=== PATIENT | male | born 1995 | race Caucasian/White ===

== ENCOUNTER 2021-02-18 11:13 | Inpatient (IN) | payer OTHER ==
[~2021-02-18] VITALS: Ht 180.3 cm; Wt 77.1 kg
== END 2021-02-20 20:45 | disposition home or self-care (01) | DRG 866 ==
LOC: ER 11:13 → MEDI 17:19
PROVIDERS: ADMIT Internal Medicine; ATTEND Internal Medicine
PROC: BW40ZZZ Ultrasonography of Abdomen (ICD-10-PCS; principal; 2021-02-18)
DX: A90 Dengue fever [classical dengue] (principal); D69.6 Thrombocytopenia, unspecified; B34.9 Viral infection, unspecified; Z20.822 Contact with and (suspected) exposure to COVID-19